=== PATIENT | male | born 1985 | race Caucasian/White ===

== ENCOUNTER 2020-05-05 14:08 | Emergency (ER) | payer OTHER ==
--- NOTE | 2020-05-05 14:21 | EDM.PDOC ---
ED HPI GENERAL MEDICAL PROBLEM - General Chief Complaint: Upper Extremity Injury/Pain Stated Complaint: INJURED RT ELBOW Time Seen by Provider: 05/05/20 14:12 Source of Information: Reports: Patient History Limitations: Reports: No Limitations - History of Present Illness INITIAL COMMENTS - FREE TEXT/NARRATIVE: 34-year-old male no relevant past medical history presents for right elbow injury. Yesterday patient was getting out of his truck when he fell landing on his right elbow. He notes pain radiating from the right elbow to shoulder. He notes numbness and tingling sensation at times. Is worse with direct pressure. Denies hitting head or LOC. Right Elbow Pain Score (Numeric/FACES): 7 - Related Data Allergies Allergy/AdvReac Type Severity Reaction Status Date / Time ciprofloxacin [From Cipro] Allergy Other Verified 05/05/20 14:20 clindamycin Allergy Anaphylactic Verified 03/14/15 00:12 Shock Penicillins Allergy Anaphylactic Verified 03/14/15 00:12 Shock Home Meds: Home Meds Ibuprofen [Motrin] 600 mg PO TID PRN #28 tab 05/05/20 [Rx] Past Medical History - Infectious Disease History Infectious Disease History: Reports: Chicken Pox - Past Surgical History GI Surgical History: Reports: Other (See Below) Social & Family History - Family History Endocrine/Metabolic: Reports: Diabetes, type II Review of Systems - Review of Systems Review Of Systems: Comprehensive ROS is negative, except as noted in HPI. ED EXAM, GENERAL - Physical Exam Exam: See Below Exam Limited By: No Limitations General Appearance: Alert, No Apparent Distress Throat/Mouth: Normal Voice, No Airway Compromise Head: Atraumatic, Normocephalic Neck: Normal Inspection Respiratory/Chest: No Respiratory Distress, No Accessory Muscle Use Cardiovascular: Normal Peripheral Pulses, Regular Rate, Rhythm, Other (palpable/normal R radial pulse) Extremities: Other (Tenderness to palpation of right elbow, limited active range of motion right elbow secondary to pain, mild tenderness palpation of right anterior AC joint, normal roll handler strength of right upper extremity) Neurological: Alert, Normal Gait Psychiatric: Normal Affect, Normal Mood Skin Exam: Warm, Dry, Intact, Normal Color Course - Vital Signs Last Recorded V/S: Last Vital Signs Temp 97.9 F 05/05/20 14:21 Pulse 67 05/05/20 14:21 Resp 16 02/20/21 14:21 BP 136/80 05/05/20 14:21 Pulse Ox 96 05/05/20 14:21 - Orders/Labs/Meds Orders: Active Orders 24 hr Category Date Time Status Keith Bandage [RC] ONETIME Care 05/05/20 15:43 Active - Re-Assessments/Exams Free Text/Narrative Re-Assessment/Exam: 05/05/20 14:54 We will get x-ray imaging of the right elbow and shoulder, will follow up results and disposition accordingly 05/05/20 15:54 No evidence of fracture dislocation or effusion on imaging. Will place Keith bandage and discharged with PMD follow-up. Motrin sent to pharmacy 05/05/20 15:56 Neurovascular exam after KEITH application is normal 05/05/20 15:56 Departure - Departure Time of Disposition: 15:54 Disposition: Home, Self-Care 01 Condition: Good Clinical Impression: Elbow sprain Qualifiers: Encounter type: initial encounter Laterality: right Qualified Code(s): S53.401A - Unspecified sprain of right elbow, initial encounter - Discharge Information Prescriptions: Ibuprofen [Motrin] 600 mg PO TID PRN #28 tab PRN Reason: Pain Instructions: Elbow Sprain Referrals: PCP,None [Primary Care Provider] - Forms: ED Department Discharge Additional Instructions: The following information is given to patients seen in the emergency department who are being discharged to home. This information is to outline your options for follow-up care. We provide all patients seen in our emergency department with a follow-up referral. The need for follow-up, as well as the timing and circumstances, are variable depending upon the specifics of your emergency department visit. If you don't have a primary care physician on staff, we will provide you with a referral. We always advise you to contact your personal physician following an emergency department visit to inform them of the circumstance of the visit and for follow-up with them and/or the need for any referrals to a consulting specialist. The emergency department will also refer you to a specialist when appropriate. This referral assures that you have the opportunity for follow-up care with a specialist. All of these measure are taken in an effort to provide you with optimal care, which includes your follow-up. Under all circumstances we always encourage you to contact your private physician who remains a resource for coordinating your care. When calling for follow-up care, please make the office aware that this follow-up is from your recent emergency room visit. If for any reason you are refused follow-up, please contact the [facility] Emergency Department at and asked to speak to the emergency department charge nurse. Please follow up with your primary care physician. If you do not have a primary care physician, see below: [facility] [address] [place] [id number] [facility] [address] [place] [address] [facility] [address], [place] [address] Sepsis Event Note (ED) - Focused Exam Vital Signs: Vital Signs Temp Pulse Resp BP Pulse Ox 05/05/20 14:21 97.9 F 67 16 136/80 96 - My Orders Last 24 Hours: My Active Orders 05/05/20 15:43 Keith Bandage [RC] ONETIME - Assessment/Plan Last 24 Hours: My Active Orders 05/05/20 15:43 Keith Bandage [RC] ONETIME
--- NOTE | 2020-05-05 15:38 | CR ---
INDICATION: Right elbow pain that radiates to shoulder. Status post fall yesterday. TECHNIQUE: Three views right elbow. FINDINGS: No acute fracture or dislocation involving the right elbow. No right elbow effusion. Minimal cortical protuberance along the olecranon process chronic. Right elbow otherwise negative. Dictated by Abdirahman Garcia MD @ May 05 2020 3:36PM Signed by Dr. Abdirahman Garcia @ May 05 2020 3:37PM
--- NOTE | 2020-05-05 15:40 | CR ---
INDICATION: Right elbow pain radiates to the right shoulder. Status post fall yesterday. TECHNIQUE THREE VIEWS RIGHT SHOULDER FINDINGS Mild degenerative arthritis right shoulder. Sclerosis and lobulated appearance of the right humeral head likely chronic. No acute fracture or dislocation right shoulder. Probable age-indeterminate fractures involving the right 7th and 8th posterior ribs. Moderate-sized dense calcification in the soft tissues of the right upper arm laterally has a benign appearance and may be related to prior trauma. Remainder negative. Dictated by Abdirahman Garcia MD @ May 05 2020 3:37PM Signed by Dr. Abdirahman Garcia @ May 05 2020 3:39PM
[2020-05-05 16:05] VITALS: BP 136/59; PULSE 64
== END 2020-05-05 16:05 | disposition home or self-care (01) ==
LOC: MW.ED 14:08
DX: S53.401A Unspecified sprain of right elbow, initial encounter (principal); Z88.1 Allergy status to other antibiotic agents; Z88.0 Allergy status to penicillin; W17.89XA Other fall from one level to another, initial encounter
CPT/HCPCS: 73030-26-RT; 73030-RT; 73080-26-RT; 73080-RT; 99283

== ENCOUNTER 2021-04-12 18:42 | Emergency (ER) | payer OTHER ==
[2021-04-12 21:48] LABS: BLOOD UREA NITROGEN,BUN 12 mg/dL (7.0-18.0); CARBON DIOXIDE,CO2 26.6 mmol/L (21.0-32.0); CHLORIDE,CL 102 mmol/L (98-107); GLUCOSE RANDOM 93 mg/dL (74-106); POTASSIUM,K 3.8 mmol/L (3.5-5.1); SODIUM,NA 139 mmol/L (136-148)
[2021-04-12 22:58] LABS: CORONAVIRUS COVID-19 NAA NEGATIVE (NEGATIVE); INFLUENZA A NAA NEGATIVE (NEGATIVE); INFLUENZA B NAA NEGATIVE (NEGATIVE)
[2021-04-13 03:14] VITALS: BP 143/68; PULSE 73
== END 2021-04-12 23:10 | disposition home or self-care (01) ==
LOC: MW.ED 18:42
DX: R07.9 Chest pain, unspecified (principal); Z88.1 Allergy status to other antibiotic agents; Z88.0 Allergy status to penicillin; Z20.822 Contact with and (suspected) exposure to COVID-19
CPT/HCPCS: 0240U; 36415; 71045; 80053; 84484; 85025; 93005; 99285

== ENCOUNTER 2022-08-06 19:13 | Inpatient (IN) | payer OTHER ==
[2022-08-06] MEDS ORDERED: Sodium Chloride 0.9% 1,000 ML IV ONE ×2 (20:13→22:48)
[2022-08-06] MEDS ORDERED: Ketorolac 30 MG/ML SDV IVPUSH ONE (20:25)
[2022-08-06 20:40] LABS: BASOPHILS ABSOLUTE AUTO 0.1 K/uL (0.0-0.1); BASOPHILS PERCENT AUTO 0.2 % (0.0-1.5); EOSINOPHILS PERCENT AUTO 0.1 % (0.0-7.0); HEMOGLOBIN 15.9 g/dL (13.0-17.0); LYMPHOCYTES ABSOLUTE AUTO 3.7 K/uL (0.6-2.4); LYMPHOCYTES PERCENT AUTO 17.3 % (16.0-40.0); MEAN CORPUSCULAR HEMOGLOBIN 29.1 pg (27.0-32.0); MEAN CORPUSCULAR HGB CONC 34.6 g/dL (31.0-37.0); MEAN CORPUSCULAR VOLUME 84.1 fL (80.0-98.0); MONOCYTES ABSOLUTE AUTO 1.2 K/uL (0.0-0.8); MONOCYTES PERCENT AUTO 5.7 % (0.0-15.0); NEUTROPHILS ABSOLUTE AUTO 16.3 K/uL (1.4-5.7); NEUTROPHILS PERCENT AUTO 76.7 % (48.0-80.0); NRBC ABSOLUTE 0 K/uL; PLATELET COUNT,PLT 413 K/uL (150-400); RED BLOOD CELL COUNT 5.47 M/uL (4.50-5.90); WHITE BLOOD CELL COUNT,WBC 21.27 K/uL (4.0-11.0)
[2022-08-06 20:42] LABS: APPEARANCE,URINE CLEAR; BILIRUBIN,URINE NEGATIVE (NEGATIVE); COLOR,URINE YELLOW; GLUCOSE,URINE NEGATIVE (NEGATIVE); KETONES,URINE NEGATIVE (NEGATIVE); LEUKOCYTE ESTERASE,URINE NEGATIVE (NEGATIVE); NITRITE,URINE NEGATIVE (NEGATIVE); OCCULT BLOOD,URINE SMALL (NEGATIVE); PROTEIN,URINE NEGATIVE (NEGATIVE); UROBILINOGEN,URINE 0.2 EU/dL (<2.0)
[2022-08-06 20:52] LABS: BACTERIA,URINE FEW (NEGATIVE); EPITHELIAL CELLS,URINE FEW (NONE-FEW); WBC,URINE 0-2 (0-5/HPF)
[2022-08-06 20:54] LABS: HEMOGLOBIN A1C 5.9 %
[2022-08-06 21:03] LABS: A/G RATIO 0.9 (0.9-1.6); ALBUMIN 3.8 g/dL (3.4-5.0); BILIRUBIN TOTAL 0.6 mg/dL (0.2-1.0); CALCIUM 8.7 mg/dL (8.5-10.1); CARBON DIOXIDE,CO2 23.5 mmol/L (21.0-32.0); CREATININE 1.1 mg/dL (0.8-1.3); EST CRCL DRUG DOSING (CG) 92.84 mL/min; POTASSIUM,K 3.7 mmol/L (3.5-5.1)
[2022-08-06] MEDS ORDERED: Iopamidol 755 MG/ML 500 ML Multipack Bottle IVPUSH STA (21:29)
[2022-08-06 22:25] LABS: MEAN CORPUSCULAR HEMOGLOBIN 28.6 pg (27.0-32.0); MEAN CORPUSCULAR HGB CONC 34.1 g/dL (31.0-37.0); MEAN CORPUSCULAR VOLUME 83.8 fL (80.0-98.0); NRBC ABSOLUTE 0 K/uL; PLATELET COUNT,PLT 375 K/uL (150-400); RED BLOOD CELL COUNT 5.25 M/uL (4.50-5.90); WHITE BLOOD CELL COUNT,WBC 21.48 K/uL (4.0-11.0)
[2022-08-06 22:52] LABS: BAND ABSOLUTE MAN 0.4; BAND PERCENT MAN 2 %; LYMPHOCYTES ABSOLUTE MAN 3.4 (0.6-2.4); LYMPHOCYTES PERCENT MAN 16 % (16.0-40.0); METAMYELOCYTE ABSOLUTE MAN 0.4; METAMYELOCYTE PERCENT MAN 2 %; MONOCYTES ABSOLUTE MAN 0.9 (0.0-0.8); MONOCYTES PERCENT MAN 4 % (0.0-15.0); SEG NEUTROPHILS ABSOLUTE MAN 16.3 (1.4-5.7); SEG NEUTROPHILS PERCENT MAN 76 % (48.0-80.0)
[2022-08-07] MEDS ORDERED: Ondansetron 4 MG/2 ML SDV IVPUSH PRN (01:18)
[2022-08-07] MEDS: Acetaminophen 325 MG Tab PO PRN ×2 (04:44→10:52)
[2022-08-07 05:34] LABS: BASOPHILS ABSOLUTE AUTO 0.1 K/uL (0.0-0.1); BASOPHILS PERCENT AUTO 0.2 % (0.0-1.5); EOSINOPHILS PERCENT AUTO 0.1 % (0.0-7.0); HEMATOCRIT 42.2 % (38.0-50.0); HEMOGLOBIN 14.1 g/dL (13.0-17.0); LYMPHOCYTES ABSOLUTE AUTO 3.9 K/uL (0.6-2.4); LYMPHOCYTES PERCENT AUTO 16.3 % (16.0-40.0); MEAN CORPUSCULAR HEMOGLOBIN 28.4 pg (27.0-32.0); MEAN CORPUSCULAR HGB CONC 33.4 g/dL (31.0-37.0); MEAN CORPUSCULAR VOLUME 85.1 fL (80.0-98.0); MONOCYTES ABSOLUTE AUTO 1.9 K/uL (0.0-0.8); NEUTROPHILS ABSOLUTE AUTO 18.1 K/uL (1.4-5.7); NEUTROPHILS PERCENT AUTO 75.4 % (48.0-80.0); PLATELET COUNT,PLT 392 K/uL (150-400); RED BLOOD CELL COUNT 4.96 M/uL (4.50-5.90); WHITE BLOOD CELL COUNT,WBC 24.04 K/uL (4.0-11.0)
[2022-08-07 05:55] LABS: CALCIUM 8.1 mg/dL (8.5-10.1); CARBON DIOXIDE,CO2 24.5 mmol/L (21.0-32.0); CREATININE 1.2 mg/dL (0.8-1.3); EST CRCL DRUG DOSING (CG) 85.1 mL/min; POTASSIUM,K 3.5 mmol/L (3.5-5.1)
[2022-08-07] MEDS ORDERED: Piperacillin/Tazobactam 3.375 GM in Sodium Chloride 0.9% 100 ML IV SCH (10:15)
[2022-08-07] MEDS ORDERED: cefTRIAXone 1 GM in Sodium Chloride 0.9% 50 ML IV SCH (10:45)
[2022-08-07 11:01] LABS: CORONAVIRUS COVID-19 NAA NEGATIVE (NEGATIVE); INFLUENZA A NAA NEGATIVE (NEGATIVE); INFLUENZA B NAA NEGATIVE (NEGATIVE); RESPIRATORY SYNCYTIAL VIR NAA NEGATIVE (NEGATIVE)
[2022-08-07] MEDS: Enoxaparin 40 MG/0.4 ML Syringe SUBCUT SCH (12:47)
[2022-08-07] MEDS: Pantoprazole 40 MG in Sodium Chloride 0.9% 10 ML IVPUSH SCH (12:48)
[2022-08-07] MEDS: Sodium Chloride 0.9% 1,000 ML IV SCH ×2 (13:25→21:37)
[2022-08-07 13:37] LABS: LACTIC ACID 0.8 mmol/L (0.4-2.0)
[2022-08-07] MEDS: Phenol 1.4% Oral Spray 177 ML Bottle MUCMEM PRN (17:49)
[2022-08-08] MEDS: Sodium Chloride 0.9% 1,000 ML IV SCH ×2 (05:25→16:07)
[2022-08-08 05:42] LABS: HEMATOCRIT 42.9 % (38.0-50.0); HEMOGLOBIN 14.2 g/dL (13.0-17.0); MEAN CORPUSCULAR HGB CONC 33.1 g/dL (31.0-37.0); MEAN CORPUSCULAR VOLUME 84.6 fL (80.0-98.0); NRBC ABSOLUTE 0 K/uL; PLATELET COUNT,PLT 335 K/uL (150-400); RED BLOOD CELL COUNT 5.07 M/uL (4.50-5.90); WHITE BLOOD CELL COUNT,WBC 24.63 K/uL (4.0-11.0)
[2022-08-08 05:58] LABS: CALCIUM 8.4 mg/dL (8.5-10.1); CARBON DIOXIDE,CO2 25.1 mmol/L (21.0-32.0); EST CRCL DRUG DOSING (CG) 102.12 mL/min; POTASSIUM,K 3.8 mmol/L (3.5-5.1)
[2022-08-08 06:38] LABS: BAND ABSOLUTE MAN 0.2; BAND PERCENT MAN 1 %; LYMPHOCYTES ABSOLUTE MAN 6.7 (0.6-2.4); LYMPHOCYTES PERCENT MAN 27 % (16.0-40.0); SEG NEUTROPHILS ABSOLUTE MAN 17.7 (1.4-5.7); SEG NEUTROPHILS PERCENT MAN 72 % (48.0-80.0)
[2022-08-08] MEDS: Pantoprazole 40 MG in Sodium Chloride 0.9% 10 ML IVPUSH SCH (07:15)
[2022-08-08] MEDS: Acetaminophen 325 MG Tab PO PRN ×2 (09:05→18:25)
[2022-08-08] MEDS: Polyethylene Glycol 3350 Powder 17 GM Packet PO SCH (09:47)
[2022-08-08] MEDS: cefTRIAXone 2 GM in Sodium Chloride 0.9% 50 ML IV SCH ×2 (11:14→22:25)
[2022-08-08] MEDS: Enoxaparin 40 MG/0.4 ML Syringe SUBCUT SCH (11:41)
[2022-08-08] MEDS: VANCOmycin 1.5 GM/300 ML 1.5 GM in Premix Bag 1 BAG IV SCH ×2 (11:48→23:03)
[2022-08-08] MEDS: Naproxen 500 MG Tab PO PRN (14:08)
[2022-08-08] MEDS ORDERED: Iopamidol 755 MG/ML 500 ML Multipack Bottle IVPUSH STA (15:15)
[2022-08-09] MEDS: Sodium Chloride 0.9% 1,000 ML IV SCH ×2 (00:26→08:28)
[2022-08-09 05:55] LABS: HEMATOCRIT 43.9 % (38.0-50.0); HEMOGLOBIN 14.2 g/dL (13.0-17.0); MEAN CORPUSCULAR HEMOGLOBIN 28.3 pg (27.0-32.0); MEAN CORPUSCULAR HGB CONC 32.3 g/dL (31.0-37.0); MEAN CORPUSCULAR VOLUME 87.5 fL (80.0-98.0); PLATELET COUNT,PLT 349 K/uL (150-400); RED BLOOD CELL COUNT 5.02 M/uL (4.50-5.90); WHITE BLOOD CELL COUNT,WBC 13.72 K/uL (4.0-11.0)
[2022-08-09 06:04] LABS: CALCIUM 8.2 mg/dL (8.5-10.1); CARBON DIOXIDE,CO2 26.4 mmol/L (21.0-32.0); CREATININE 0.9 mg/dL (0.8-1.3); EST CRCL DRUG DOSING (CG) 113.47 mL/min; POTASSIUM,K 4.2 mmol/L (3.5-5.1)
[2022-08-09 06:06] LABS: BORDETELLA PARAPERT IS1001 Not Detected (Not Detected)
[2022-08-09 06:45] LABS: BAND PERCENT MAN 7 %; BASOPHILS ABSOLUTE MAN 0.1 (0.0-0.1); BASOPHILS PERCENT MAN 1 % (0.0-1.5); LYMPHOCYTES PERCENT MAN 29 % (16.0-40.0); SEG NEUTROPHILS ABSOLUTE MAN 8.6 (1.4-5.7); SEG NEUTROPHILS PERCENT MAN 63 % (48.0-80.0)
[2022-08-09 06:46] LABS: NRBC MANUAL 52 %
[2022-08-09] MEDS: Phenol 1.4% Oral Spray 177 ML Bottle MUCMEM PRN ×4 (06:57→21:32)
[2022-08-09] MEDS: Pantoprazole 40 MG in Sodium Chloride 0.9% 10 ML IVPUSH SCH (06:57)
[2022-08-09] MEDS: Naproxen 500 MG Tab PO PRN ×2 (08:06→19:59)
[2022-08-09] MEDS: Polyethylene Glycol 3350 Powder 17 GM Packet PO SCH (08:30)
[2022-08-09] MEDS: cefTRIAXone 2 GM in Sodium Chloride 0.9% 50 ML IV SCH ×2 (09:32→21:33)
[2022-08-09] MEDS: VANCOmycin 1.75 GM/350 ML 1.75 GM in Premix Bag 1 BAG IV SCH ×2 (10:20→17:28)
[2022-08-09] MEDS: Enoxaparin 40 MG/0.4 ML Syringe SUBCUT SCH (11:25)
[2022-08-10] MEDS: VANCOmycin 1.75 GM/350 ML 1.75 GM in Premix Bag 1 BAG IV SCH ×2 (03:06→10:19)
[2022-08-10 06:22] LABS: HEMATOCRIT 43.1 % (38.0-50.0); HEMOGLOBIN 14.2 g/dL (13.0-17.0); MEAN CORPUSCULAR HEMOGLOBIN 28.4 pg (27.0-32.0); MEAN CORPUSCULAR HGB CONC 32.9 g/dL (31.0-37.0); MEAN CORPUSCULAR VOLUME 86.2 fL (80.0-98.0); PLATELET COUNT,PLT 329 K/uL (150-400); WHITE BLOOD CELL COUNT,WBC 14.61 K/uL (4.0-11.0)
[2022-08-10 06:28] LABS: CALCIUM 8.7 mg/dL (8.5-10.1); CARBON DIOXIDE,CO2 25.7 mmol/L (21.0-32.0); CREATININE 0.9 mg/dL (0.8-1.3); EST CRCL DRUG DOSING (CG) 113.47 mL/min; POTASSIUM,K 4.2 mmol/L (3.5-5.1)
[2022-08-10] MEDS: Pantoprazole 40 MG in Sodium Chloride 0.9% 10 ML IVPUSH SCH (06:32)
[2022-08-10 06:53] LABS: BAND ABSOLUTE MAN 0.1; BAND PERCENT MAN 1 %; EOSINOPHILS ABSOLUTE MAN 0.6 (0.0-0.7); EOSINOPHILS PERCENT MAN 4 % (0.0-7.0); LYMPHOCYTES ABSOLUTE MAN 3.7 (0.6-2.4); LYMPHOCYTES PERCENT MAN 25 % (16.0-40.0); MONOCYTES PERCENT MAN 7 % (0.0-15.0); SEG NEUTROPHILS ABSOLUTE MAN 9.2 (1.4-5.7); SEG NEUTROPHILS PERCENT MAN 63 % (48.0-80.0)
[2022-08-10] MEDS: Polyethylene Glycol 3350 Powder 17 GM Packet PO SCH (08:52)
[2022-08-10] MEDS: cefTRIAXone 2 GM in Sodium Chloride 0.9% 50 ML IV SCH (09:39)
[2022-08-10] MEDS: Enoxaparin 40 MG/0.4 ML Syringe SUBCUT SCH (12:00)
[2022-08-10 13:31] VITALS: BP 157/64; PULSE 92
== END 2022-08-10 13:23 | disposition home or self-care (01) | DRG 153 ==
LOC: MW.ED 19:13 → MW.MS 23:17 → OBSVTOIN 08-08 10:01 → MW.MS 08-08 11:35
PROVIDERS: ADMIT Internal Medicine; ATTEND Internal Medicine
DX: J02.0 Streptococcal pharyngitis (principal); N28.1 Cyst of kidney, acquired; H54.7 Unspecified visual loss; G89.29 Other chronic pain; M54.9 Dorsalgia, unspecified; F17.210 Nicotine dependence, cigarettes, uncomplicated; N20.0 Calculus of kidney; Z20.822 Contact with and (suspected) exposure to COVID-19; Z90.81 Acquired absence of spleen; Z88.1 Allergy status to other antibiotic agents; Z88.0 Allergy status to penicillin; Z79.899 Other long term (current) drug therapy
CPT/HCPCS: 0241U; 36415; 70491; 70491-26; 74177; 74177-26; 76705; 76705-26; 80048; 80053; 80202; 81001; 83036; 83605; 83690; 85025; 87040; 87070; 87389; 87486; 87581; 87633; 87798; 87880-QW; 96361; 96365; 96366; 96372; 96374; 96375; 96376; 99284; 99285-25; A9270-GY; C9113; G0378; J0696; J1650; J1885; J2405; J3370; J3490; J7030; Q9967